=== PATIENT | male | born 1965 | race Caucasian/White ===

== ENCOUNTER → 2017-10-17 | Outpatient (CLI) | payer OTHER ==
--- NOTE | 2017-10-18 10:24 | XCELERA REPORT ---
[address] [address] Lower Extremity Venous Evaluation Name: DARIANA LINARES Age: 52 yrs Gender: Male : 1965 Patient Status: Outpatient Patient Location: Study Date: 10/17/2017 04:06 PM Procedure: The veins were evaluated for patency, spontaneous and phasic flow from the Common Femoral down to the infrageniculate vessles, on the right. Reason For Study: RLE PAIN Ordering Physician: LINDA COWART Performed By: Althea Alarcon Right Sided Venous Evaluation Normal vessel filling wall to wall, compression and augmentation as well as Colour flow down to the infrageniculate veins. Interpretation Summary Normal compression, patency, spontaneous and phasic flow of the right lower extremity veins. : LINDA COWART > Jacob Albrecht
== END ==
LOC: SP 15:45
PROVIDERS: ATTEND Orthopaedic Surgery
DX: M79.661 Pain in right lower leg (principal)
CPT/HCPCS: 93971